=== PATIENT | male | born 1960 | race Caucasian/White ===

== ENCOUNTER 2019-05-05 14:20 | Outpatient (RCR) | payer SELFPAY | END 2019-05-13 00:01 | LOC: SPT 14:20 | PROVIDERS: Family Provider Family Medicine; Visit Provider Orthopaedic Surgery | DX: M75.01 Adhesive capsulitis of right shoulder (principal) | CPT/HCPCS: 97161 ==

== ENCOUNTER 2019-05-14 06:00 | Outpatient (RCR) | payer BC, SELFPAY | END 2019-06-13 23:59 | disposition home or self-care (01) | LOC: SPT 06:00 | PROVIDERS: Family Provider Family Medicine; PCP Nurse Practitioner; Visit Provider Orthopaedic Surgery | DX: M75.01 Adhesive capsulitis of right shoulder (principal) ==

== ENCOUNTER 2019-07-16 12:59 | Outpatient (CLI) | payer BC, SELFPAY ==
--- NOTE | 2019-07-16 13:03 | US_ITS ---
WS: [id number] RENAL ULTRASOUND REASON FOR EXAM: R RENAL MASS TECHNIQUE: Grayscale and Doppler ultrasound examination of the kidneys. FINDINGS: Right kidney: Right kidney measures 13.3 cm x 4.8 cm x 5.1 cm. The right kidney shows a solid mass me asures 2.42 x 2.72 x 2.75 cm. Left kidney: Left kidney measures 13.4 cm x 5.4 cm x 6.2 cm. 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 The aorta was normal measured 2.50 cm. The urinary bladder was partially contracted but show no definite wall lesions. US/US renal BI* [id number] IMPRESSION: A neoplastic mass is suspected involving the superior pole the right kidney fol low-up evaluation with CT with contrast or an MRI.
== END 2019-07-16 13:00 | disposition home or self-care (01) ==
PROVIDERS: Family Provider Family Medicine; Visit Provider Nurse Practitioner Family
DX: N28.89 Other specified disorders of kidney and ureter (principal)
CPT/HCPCS: 76770; 81001

== ENCOUNTER 2020-07-15 14:41 | Outpatient (CLI) | payer BC, SELFPAY ==
--- NOTE | 2020-07-15 14:49 | CT_ITS ---
WS: [id number] LDCT LUNG CANCER SCREENING HISTORY: HX OF TOBACCO USE TECHNIQUE: Axial imaging performed from the apices to 1 cm below the costophrenic angles. Coronal and sagittal reformats are submitted with axial MIP series. All CT scans at [facility] use at least one of these dose optimization techniques: automated exposure control; mA and/or kV adjustment per patient size (includes targeted exams where dose is matched to clinical indication); or iterativ e reconstruction. DLP: 58.15 mGy.cm DIvol: 1.58 mGy COMPARISON: None available. Diagnostic quality: Satisfactory Lung Nodules: No pulmonary nodules or endobronchial lesions. There is a small amount of mucus in the LEFT lateral trachea. Lungs: Hyperexpanded lungs from emphysema. Heart: Normal size heart. Scattered coronary artery calcifications in the LEFT anterior descending co ronary. Other findings: Mild atherosclerosis aorta. Prior cholecystectomy. Hepatic steatosis. CT/CT lung screening [id number] IMPRESSION: LUNG-RADS: 1-Negative FOLLOW UP: 12 Month: Continue annual screening with LDCT OTHER FINDINGS (S MODIFIER): None.
== END 2020-07-15 14:42 | disposition home or self-care (01) ==
LOC: CT 14:44
PROVIDERS: PCP Family Medicine; Visit Provider Family Medicine
DX: Z12.2 Encounter for screening for malignant neoplasm of respiratory organs (principal); Z87.891 Personal history of nicotine dependence; I70.0 Atherosclerosis of aorta; Z90.49 Acquired absence of other specified parts of digestive tract; K76.0 Fatty (change of) liver, not elsewhere classified
CPT/HCPCS: 71271

== ENCOUNTER 2022-12-22 10:08 | Outpatient (CLI) | payer BC, SELFPAY ==
--- NOTE | 2022-12-22 10:22 | CT_ITS ---
WS: [id number] CT CHEST AND ABDOMEN TECHNIQUE: Contrast-enhanced CT of the chest and abdomen with coronal and sagittal reformatted images . CLINICAL INFORMATION: MULTIPLE LUNG NODULES COMPARISON: CT 07/15/2020 DLP: 868.[address] scans at [facility] use at least one of these dose optimization techniques: automated e xposure control; mA and/or kV adjustment per patient size (includes targeted exams where dose is matc hed to clinical indication); or iterative reconstruction. CT CHEST: Both lungs are well aerated. No acute pulmonary infiltrates. No focal pneumonia or pleural fluid. Tin y 3 mm nodule left lower lobe. No other suspicious pulmonary parenchymal opacities. Mild thoracic curve. Mild thoracic kyphosis. Normal caliber thoracic aorta. Aortic calcification. Cor onary calcification. No mediastinal or hilar lymphadenopathy. No axillary lymphadenopathy. 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 Hepatomegaly. Incidental hepatic cyst measuring 11 mm. Normal GE junction. Splenomegaly. Fatty atrophy of the pancreas. Normal portal vein and splenic vein. Adrena l glands are normal. Normal renal parenchymal enhancement. No hydronephrosis. Parenchymal scarring ri ght kidney. Celiac and SMA are patent. Few colonic diverticuli. Aortic calcification. Normal caliber abdominal aorta. IMPRESSION: 1. Tiny nodule left lower lobe measuring 3 mm. No other suspicious pulmonary parenchymal opacities. 2. No mediastinal or hilar lymphadenopathy. 3. Hepatomegaly and splenomegaly. Diffuse fatty filtration of the liver. 4. Small right hepatic cyst measuring 11 mm. 5. No other suspicious findings.
[2022-12-22] MEDS: iohexol 350 mg/mL 500 mL Btl (per mL) PO (11:17)
[2022-12-22 11:25] LABS: Blood Urea Nitrogen 23 mg/dL (8-23); Glomerular Filtration Rate 75.7 mL/min (90-130)
[2022-12-22] MEDS: iohexol 350 mg/mL 500 mL Btl (per mL) IV (11:30)
== END 2022-12-22 10:09 | disposition home or self-care (01) ==
PROVIDERS: PCP Family Medicine; Visit Provider Family Medicine
DX: R91.8 Other nonspecific abnormal finding of lung field (principal); R16.2 Hepatomegaly with splenomegaly, not elsewhere classified; K76.89 Other specified diseases of liver
CPT/HCPCS: 71260; 74160; 82565; 84520; Q9967

== ENCOUNTER 2023-10-11 09:52 | Outpatient (CLI) | payer BC, SELFPAY ==
--- NOTE | 2023-10-11 09:54 | CT_ITS ---
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 TECHNIQUE: Axial imaging performed through the thorax. Coronal and sagittal reformats are submitted. All CT scans at [facility] use at least one of these dose optimization techniques: automated exposure control; mA and/or kV adjustment per patient size (includes targeted exams where dose is mat ched to clinical indication); or iterative reconstruction. CONTRAST: Omnipaque 350; 100 mL IV. DLP: 458.18 mGy.cm COMPARISON: 12/22/2022 Lungs and central airway: Normal. Pleura: Normal. No pleural effusion. Heart and pericardium: Normal size heart with no pericardial effusion. Mediastinum and shaun: There is several small mediastinal and hilar lymph nodes which are not patholo gic. Vessels: Mild atherosclerosis aorta. Normal size pulmonary artery. Chest wall and lower neck: Lipoma infraspinatus muscle LEFT shoulder. Upper abdomen: Reidentified is mild thickening of the LEFT adrenal gland. Postsurgical changes of a p artial RIGHT nephrectomy are reidentified. The entire kidneys are not included on this examination of the lung. Mild hepatic steatosis. Prior cholecystectomy. Osseous structures: No destructive bone lesions. No paraspinal mass. CT/CT chest w con* [id number] IMPRESSION: 1. No pulmonary mass or nodule. 2. No mediastinal or hilar adenopathy. 3. No destructive bone lesions are identified. 4. Stable mild thickening of the LEFT adrenal gland. 5. LEFT infraspinatus muscle lipoma.
[2023-10-11 11:32] LABS: Blood Urea Nitrogen 20 mg/dL (8-23); Glomerular Filtration Rate 75.5 mL/min (90-130)
[2023-10-11] MEDS: iohexol 350 mg/mL 500 mL Btl (per mL) IV (12:07)
== END 2023-10-11 09:53 | disposition home or self-care (01) ==
LOC: RAD 09:52
PROVIDERS: Radiology Neuroradiology; PCP Family Medicine; Visit Provider Family Medicine
DX: C64.9 Malignant neoplasm of unspecified kidney, except renal pelvis (principal); D17.22 Benign lipomatous neoplasm of skin and subcutaneous tissue of left arm; D35.02 Benign neoplasm of left adrenal gland; Z90.49 Acquired absence of other specified parts of digestive tract
CPT/HCPCS: 71260; 82565; 84520; Q9967

== ENCOUNTER 2024-05-29 13:19 | Outpatient (CLI) | payer BC, SELFPAY ==
--- NOTE | 2024-05-29 13:25 | CT_ITS ---
WS: [id number] CT ABDOMEN AND PELVIS WITH CONTRAST HISTORY: RENAL CELL CARCINOMA TECHNIQUE: Imaging performed of the abdomen and pelvis with IV contrast. Single phase imaging of the abdomen. Coronal and sagittal reformats are submitted. All CT scans at [facility] use at [address] one of these dose optimization techniques: automated exposure control; mA and/or kV adjustment per patient size (includes targeted exams where dose is matched to clinical indication); or iterative re construction. IV CONTRAST: Omnipaque 350; 100 mL IV. Oral contrast: No DLP: 606.66 mGy.cm COMPARISON: 12/22/2022, 11/08/2017 Lower thorax: Lung bases are clear. Heart is normal size. No hiatal hernia. Liver/biliary system: Tiny hypodensities within the liver. The largest is stable measuring 8 mm. Ther e are new subcapsular too small to characterize hypodensities in the LEFT lobe. No portal vein abnorm ality. No intrahepatic duct dilatation. Gallbladder: Prior cholecystectomy. Pancreas: Normal size pancreas and pancreatic duct. No adjacent inflammation. Spleen: Normal size spleen. No mass or infarct. Adrenal glands: Normal RIGHT adrenal gland. Mild stable thickening of the LEFT adrenal gland measurin g 9 mm. Right kidney: Partial nephrectomy upper pole. Postsurgical changes with cortical thinning and scarrin g. No recurrent mass. No renal obstruction. No portal vein thrombus. Left kidney: Normal. Aorta: Mild atherosclerosis with no aneurysm. Lymphadenopathy: None. Free fluid: None. GI tract: Stomach is nondistended. No small bowel obstruction. Diffuse [place] diverticulosis. No evidenc e for acute diverticulitis. Numerous diverticula with submucosal wall thickening and tortuosity in th e sigmoid. Lumen is becoming narrowed but there is no obstruction. No acute diverticulitis. Surgical clips are noted in the cecum. May be related to prior appendectomy. Patient did not provide that hist ory is a prior surgery. Abdominal wall: Unremarkable abdominal wall. No hernia. Pelvis: No free fluid or adenopathy within the pelvis. Fat-containing inguinal hernias. Bones: No destructive bone lesions. CT/CT abdomen pelvis w con* [id number] IMPRESSION: 1. Stable partial nephrectomy site upper pole RIGHT kidney. No recurrent mass. No new mass within either kidney. 2. No renal vein thrombus. 3. Stable hypodensity in the central RIGHT lobe of the liver. Additional very tiny too small to characterize hypodensities LEFT lobe. 4. Pandiverticulosis. More advanced sigmoid diverticulosis with no acute diver ticulitis.
[2024-05-29] MEDS: iohexol 350 mg/mL 500 mL Btl (per mL) IV (13:41)
== END 2024-05-29 13:20 | disposition home or self-care (01) ==
LOC: RAD 13:23
PROVIDERS: PCP Family Medicine; Visit Provider Family Medicine
DX: C64.1 Malignant neoplasm of right kidney, except renal pelvis (principal); Z98.890 Other specified postprocedural states; R93.2 Abnormal findings on diagnostic imaging of liver and biliary tract; K57.30 Diverticulosis of large intestine without perforation or abscess without bleeding; Z90.49 Acquired absence of other specified parts of digestive tract; R93.89 Abnormal findings on diagnostic imaging of other specified body structures; R93.421 Abnormal radiologic findings on diagnostic imaging of right kidney; I70.0 Atherosclerosis of aorta
CPT/HCPCS: 74177

== ENCOUNTER 2024-12-12 10:50 | Outpatient (CLI) | payer BC, SELFPAY ==
--- NOTE | 2024-12-12 11:00 | CT_ITS ---
WS: [id number] LDCT LUNG CANCER SCREENING TECHNIQUE: Noncontrast CT of the chest with coronal and sagittal reformatted images. CLINICAL INFORMATION: HX OF TOBACCO USE COMPARISON: CT chest 10/11/[address] lung screening 2020 DLP: 71.39 mGy.cm DIvol: Mean CTDIvol: 1.50 (mGy) All CT scans at [facility] use at least one of these dose optimization techniques: automated exposure control; mA and/or kV adjustment per patient size (includes targeted exams where dose is matched to clinical indication); or iterative reconstruction. FINDINGS: Stable tiny nodule LEFT lower lobe dorsally measuring 3 mm. 3 mm nodule RIGHT upper lobe anteriorly adjacent to the mediastinum. Additional RIGHT upper lobe nodule anteriorly. Tiny nodule RIGHT lower lobe laterally. Tiny nodule in the lingula. Noncalcified nodule LEFT upper lobe anteriorly measuring 5 mm. This appears new from 2023. Recommend 6-month follow-up. Hyperinflation. Chronic emphysematous change. Aortic calcification. Coronary calcification. Prior cholecystectomy. RIGHT liver cyst measuring 11 mm. Stable thickening LEFT adrenal gland. Normal GE junction. Moderate thoracic kyphosis. CT/CT lung screening [id number] IMPRESSION: Noncalcified nodule LEFT upper lobe anteriorly measuring 5 mm. This appears new from 2023. Recommend 6-month follow-up. LUNG-RADS: 3-Probably Benign FOLLOW UP: 6 Month LDCT
== END 2024-12-12 10:51 | disposition home or self-care (01) ==
PROVIDERS: PCP Family Medicine; Visit Provider Family Medicine
DX: Z12.2 Encounter for screening for malignant neoplasm of respiratory organs (principal); Z87.891 Personal history of nicotine dependence; Z90.49 Acquired absence of other specified parts of digestive tract; R91.8 Other nonspecific abnormal finding of lung field; I25.84 Coronary atherosclerosis due to calcified coronary lesion; I35.8 Other nonrheumatic aortic valve disorders; J43.9 Emphysema, unspecified; M40.294 Other kyphosis, thoracic region; E27.9 Disorder of adrenal gland, unspecified; K76.89 Other specified diseases of liver
CPT/HCPCS: 71271